=== PATIENT | female | born 1960 | race American Indian/Alaskan Native ===

== ENCOUNTER 2017-08-05 11:36 | Outpatient (CLI) | payer OTHER ==
--- NOTE | 2017-08-05 12:52 | XRay Report ---
XRAY LEFT KNEE 2 VIEWS: 08/05/17 11:36:00 CLINICAL: Pain and decreased range of motion. FINDINGS: No fracture or dislocation. Mild narrowing of the medial joint space without osteophytes. A small inferior patellofemoral joint osteophyte. The lateral joint space is normal. No joint effusion. The soft tissues are normal. 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
== END 2017-08-05 11:37 | disposition home or self-care (01) ==
LOC: XRAY 11:36
PROVIDERS: ATTEND Internal Medicine
DX: M17.12 Unilateral primary osteoarthritis, left knee (principal)